=== PATIENT | female | born 1980 | race African-American/Black ===

== ENCOUNTER 2016-10-03 09:27 | Emergency (ER) | payer OTHER ==
[~2016-10-03] VITALS: Ht 160 cm; Wt 61.0 kg
[~2016-10-03 09:27] MED LIST: PREN-142 PO
[2016-10-03 09:57] VITALS: BP 126/82
[2016-10-03] MEDS ORDERED: SODIUM CHLORIDE 0.9% IR ONE (10:15)
== END 2016-10-03 10:48 | disposition home or self-care (01) ==
LOC: ER 10:25
DX: H61.22 Impacted cerumen, left ear (principal); F17.200 Nicotine dependence, unspecified, uncomplicated
CPT/HCPCS: 69209; 99283

== ENCOUNTER 2018-02-27 13:00 | Emergency (ER) | payer OTHER ==
[~2018-02-27] VITALS: Ht 152.4 cm; Wt 60.0 kg
[2018-02-27 15:11] VITALS: BP 131/90
== END 2018-02-27 16:04 | disposition left against medical advice (07) ==
LOC: ER 16:03
DX: Z53.21 Procedure and treatment not carried out due to patient leaving prior to being seen by health care provider (principal)

== ENCOUNTER 2018-09-22 09:15 | Emergency (ER) | payer OTHER ==
[~2018-09-22] VITALS: Ht 167.6 cm; Wt 73.0 kg
[2018-09-22] MEDS ORDERED: HYDROCODONE/ACETAMINOPHEN 5/325MG TABLET PO ONE (11:00)
[2018-09-22 12:49] VITALS: BP 120/72
== END 2018-09-22 12:51 | disposition home or self-care (01) ==
LOC: ER 09:15
DX: M25.561 Pain in right knee (principal); W01.0XXA Fall on same level from slipping, tripping and stumbling without subsequent striking against object, initial encounter; Y93.89 Activity, other specified; Y92.014 Private driveway to single-family (private) house as the place of occurrence of the external cause
CPT/HCPCS: 73562; 99283

== ENCOUNTER 2019-08-07 10:23 | Emergency (ER) | payer OTHER ==
[~2019-08-07] VITALS: Ht 152.4 cm; Wt 64.0 kg
[~2019-08-07 10:23] MED LIST changes: -PREN-142 PO; +PRENATAL ONE T1 EACH PO
[2019-08-07] MEDS ORDERED: SODIUM CHLORIDE 0.9% 500 ML IV ONE (11:55)
[2019-08-07] MEDS ORDERED: KETOROLAC 30MG/ML VIAL IV STA (11:55)
[2019-08-07] MEDS ORDERED: CLINDAMYCIN 600 MG in DEXTROSE 5% WATER 50 ML IV ONE (12:00)
[2019-08-07] MEDS ORDERED: CLINDAMYCIN 600MG PREMIX 50 ML IV SCH (12:15)
[2019-08-07 12:34] LABS: HEMATOCRIT. 48.4 % (36.0-48.0); HEMOGLOBIN. 16.5 g/dL (12.0-16.0); MEAN CORPUSCULAR HEMOGLOBIN 30.2 pg (28.0-32.0); MEAN CORPUSCULAR VOLUME 88.5 fL (81.0-99.0); MEAN PLATELET VOLUME 7.3 fl (7.4-10.4); PLATELET 245 x1000/uL (130-400); RED BLOOD CELL COUNT 5.46 mill/uL (4.2-5.4); RED CELL DISTRIBUTION WIDTH 15.6 % (11.6-14.6)
[2019-08-07 13:31] LABS: CHLORIDE 107 mEq/L (98-107)
[2019-08-07 13:51] LABS: PLATELET ESTIMATE NORMAL
[2019-08-07 14:01] VITALS: BP 124/76
== END 2019-08-07 14:06 | disposition home or self-care (01) ==
LOC: ER 11:50
DX: K04.7 Periapical abscess without sinus (principal); K12.2 Cellulitis and abscess of mouth
CPT/HCPCS: 36415; 80053; 81025; 85025; 96365; 96375; 99284; J1885; J3490; J7030; J7060

== ENCOUNTER 2019-09-09 18:23 | Emergency (ER) | payer OTHER ==
[~2019-09-09] VITALS: Ht 152.4 cm; Wt 64.0 kg
[2019-09-09] MEDS ORDERED: CLIN300C11 PO (18:57)
[2019-09-09] MEDS ORDERED: IBUPROFEN (18:57)
[2019-09-09] MEDS ORDERED: KETOROLAC 30MG/ML VIAL IV STA (19:26)
[2019-09-09] MEDS ORDERED: CLINDAMYCIN 600 MG in DEXTROSE 5% WATER 50 ML IV ONE (19:30)
[2019-09-09] MEDS ORDERED: CLINDAMYCIN 300 MG in DEXTROSE 5% WATER 50 ML IV ONE (20:00)
[2019-09-09 20:57] LABS: HEMATOCRIT. 45.6 % (36.0-48.0); HEMOGLOBIN. 15.4 g/dL (12.0-16.0); MEAN CORPUSCULAR HEMOGLOBIN 29.8 pg (28.0-32.0); MEAN CORPUSCULAR VOLUME 88.1 fL (81.0-99.0); MEAN PLATELET VOLUME 7.2 fl (7.4-10.4); PLATELET 213 x1000/uL (130-400); RED BLOOD CELL COUNT 5.17 mill/uL (4.2-5.4); RED CELL DISTRIBUTION WIDTH 15.9 % (11.6-14.6)
[2019-09-09 21:08] LABS: CHLORIDE 103 mEq/L (98-107)
[2019-09-09 21:09] LABS: CLARITY URINE CLEAR (CLEAR); COLOR URINE YELLOW (YELLOW); KETONES URINE TRACE (NEGATIVE); LEUKOCYTE ESTERASE URINE 2+ (NEGATIVE); NITRITE URINE NEGATIVE (NEGATIVE); OCCULT BLOOD URINE 2+ (NEGATIVE); PH URINE 5.5 (4.5-8.0); PROTEIN URINE NEGATIVE (NEGATIVE); SPECIFIC GRAVITY URINE 1.017 (1.005-1.030)
[2019-09-09 21:37] LABS: PLATELET ESTIMATE NORMAL
[2019-09-09 22:50] VITALS: BP 152/98
[2019-09-09] MEDS ORDERED: IOHEXOL-300 100 ML BOTTLE ONE (23:57)
== END 2019-09-09 23:03 | disposition home or self-care (01) ==
LOC: ER 18:23
DX: K04.7 Periapical abscess without sinus (principal); M79.89 Other specified soft tissue disorders; Z79.899 Other long term (current) drug therapy
CPT/HCPCS: 36415; 70487; 80053; 81003; 81025; 85025; 96365; 96375; 99284; J1885; J3490; J7060; Q9967

== ENCOUNTER 2020-03-23 09:14 | Emergency (ER) | payer OTHER ==
[~2020-03-23] VITALS: Ht 152.4 cm; Wt 59.0 kg
[~2020-03-23 09:14] MED LIST changes: +CLIN300C11 PO; +IBUPROFEN; -PRENATAL ONE T1 EACH PO
[2020-03-23] MEDS ORDERED: IBUPROFEN 600MG TABLET PO ONE (10:00)
[2020-03-23 10:02] VITALS: BP 152/96
== END 2020-03-23 11:04 | disposition home or self-care (01) ==
LOC: ER 09:14
DX: N64.4 Mastodynia (principal); Z80.3 Family history of malignant neoplasm of breast; Z80.9 Family history of malignant neoplasm, unspecified
CPT/HCPCS: 71045; 81025; 99283

== ENCOUNTER 2021-05-09 08:47 | Emergency (ER) | payer OTHER ==
[~2021-05-09] VITALS: Ht 152.4 cm; Wt 51.0 kg
[~2021-05-09 08:47] MED LIST changes: -CLIN300C11 PO; +CLIN300C12 PO
[2021-05-09] MEDS ORDERED: METOCLOPRAMIDE HCL 10MG/2ML VIAL IV STA (09:42)
[2021-05-09] MEDS ORDERED: SODIUM CHLORIDE 0.9% 1,000 ML IV ONE (09:45)
[2021-05-09] MEDS ORDERED: DIPHENHYDRAMINE 50MG/ML VIAL IV ONE (09:45)
[2021-05-09 10:24] LABS: BASOPHILS % 0.3 % (0.0-2.0); EOSINOPHILS % 0.1 % (0.0-5.0); HEMATOCRIT. 33.7 % (36.0-48.0); HEMOGLOBIN. 11.4 g/dL (12.0-16.0); LYMPHOCYTES % 11.5 % (20.0-50.0); MEAN CORPUSCULAR HEMOGLOBIN 30.9 pg (28.0-32.0); MEAN CORPUSCULAR VOLUME 91.4 fL (81.0-99.0); MEAN PLATELET VOLUME 6.5 fl (7.4-10.4); NEUTROPHILS % 83.1 % (40.0-76.0); PLATELET 312 x1000/uL (130-400); RED BLOOD CELL COUNT 3.68 mill/uL (4.2-5.4); RED CELL DISTRIBUTION WIDTH 14.1 % (11.6-14.6)
[2021-05-09 10:32] LABS: CHLORIDE 104 mEq/L (98-107)
[2021-05-09 14:25] LABS: CLARITY URINE CLOUDY (CLEAR); COLOR URINE YELLOW (YELLOW); KETONES URINE 4+ (NEGATIVE); LEUKOCYTE ESTERASE URINE 1+ (NEGATIVE); NITRITE URINE NEGATIVE (NEGATIVE); OCCULT BLOOD URINE NEGATIVE (NEGATIVE); PH URINE 6.5 (4.5-8.0); PROTEIN URINE 1+ (NEGATIVE); SPECIFIC GRAVITY URINE 1.025 (1.005-1.030)
[2021-05-09] MEDS ORDERED: PROM25SU57 RC (15:36)
[2021-05-09 15:45] VITALS: BP 100/75
[2021-05-09] MEDS ORDERED: METO5TAB86 MT (16:17)
[2021-05-12] MEDS ORDERED: CEPH500C2 MT (09:19)
== END 2021-05-09 16:46 | disposition home or self-care (01) ==
LOC: ER 08:47
DX: R10.30 Lower abdominal pain, unspecified (principal); O23.43 Unspecified infection of urinary tract in pregnancy, third trimester; N39.0 Urinary tract infection, site not specified; O26.893 Other specified pregnancy related conditions, third trimester; E86.0 Dehydration; O21.9 Vomiting of pregnancy, unspecified; E88.89 Other specified metabolic disorders; Z3A.28 28 weeks gestation of pregnancy
CPT/HCPCS: 36415; 80053; 81003; 83690; 85025; 96361; 96374; 96375; 99285; J1200; J2765; J7030

== ENCOUNTER 2022-12-01 21:53 | Emergency (ER) | payer MEDICAID, OTHER ==
[~2022-12-01] VITALS: Ht 152.4 cm; Wt 58.4 kg
[~2022-12-01 21:53] MED LIST changes: +CEPH500C2 MT; +CLIN-194 PO; -CLIN300C12 PO; +METO5TAB86 MT; +PROM25SU57 RC
[2022-12-01 22:03] VITALS: BP 135/88; RESP 16; TEMP 98.4; O2SAT 99
[2022-12-01 22:05] VITALS: PULSE 94
[2022-12-01 22:27] LABS: BASOPHILS % 0.4 % (0.0-2.0); EOSINOPHILS % 0.3 % (0.0-5.0); HEMATOCRIT. 38.8 % (36.0-48.0); HEMOGLOBIN. 12.9 g/dL (12.0-16.0); LYMPHOCYTES % 22.8 % (20.0-50.0); MEAN CORPUSCULAR HEMOGLOBIN 30.9 pg (28.0-32.0); MEAN CORPUSCULAR VOLUME 92.9 fL (81.0-99.0); MEAN PLATELET VOLUME 6.4 fl (7.4-10.4); MONOCYTES % 8.3 % (2.0-8.0); NEUTROPHILS % 68.2 % (40.0-76.0); PLATELET 332 x1000/uL (130-400); RED BLOOD CELL COUNT 4.18 mill/uL (4.2-5.4); RED CELL DISTRIBUTION WIDTH 14.1 % (11.6-14.6)
[2022-12-01 22:42] LABS: CHLORIDE 107 mEq/L (98-107)
== END 2022-12-02 01:00 | disposition home or self-care (01) ==
LOC: ER 21:53
DX: M62.838 Other muscle spasm (principal); R53.1 Weakness
CPT/HCPCS: 36415; 71045; 80053; 84484; 85025; 93005; 99285

== ENCOUNTER 2023-05-05 18:44 | Emergency (ER) | payer MEDICAID ==
[~2023-05-05] VITALS: Ht 154.9 cm; Wt 60.0 kg
[2023-05-05 18:59] VITALS: BP 137/92; PULSE 86; RESP 16; TEMP 97.9; O2SAT 100
[2023-05-05 19:42] LABS: BASOPHILS % 0.4 % (0.0-2.0); EOSINOPHILS % 0.1 % (0.0-5.0); HEMATOCRIT. 40.4 % (36.0-48.0); HEMOGLOBIN. 13.2 g/dL (12.0-16.0); LYMPHOCYTES % 20.8 % (20.0-50.0); MEAN CORPUSCULAR HEMOGLOBIN 30.5 pg (28.0-32.0); MEAN CORPUSCULAR HGB CONC 32.6 g/dL (31.0-37.0); MEAN CORPUSCULAR VOLUME 93.7 fL (81.0-99.0); MEAN PLATELET VOLUME 6.9 fl (7.4-10.4); MONOCYTES % 7.4 % (2.0-8.0); NEUTROPHILS % 71.3 % (40.0-76.0); PLATELET 309 x1000/uL (130-400); RED BLOOD CELL COUNT 4.31 mill/uL (4.2-5.4); RED CELL DISTRIBUTION WIDTH 13.2 % (11.6-14.6); WHITE BLOOD COUNT 8.5 x1000/uL (4.5-11.0)
[2023-05-05 19:48] LABS: PROTHROMBIN TIME 10.9 sec (9.6-11.0)
[2023-05-05 19:54] LABS: ALANINE AMINOTRANSFERASE < 7 IU/L (10-49); ASPARTATE AMINOTRANSFERASE 17 IU/L (<34); BILIRUBIN TOTAL 0.9 mg/dL (0.1-1.0); CARBON DIOXIDE 24 mEq/L (21-32); CHLORIDE 104 mEq/L (98-107); CREATININE 0.7 mg/dL (0.6-1.0); GLUCOSE 107 mg/dL (70-105); POTASSIUM 3.6 mEq/L (3.5-5.1); SODIUM 137 mEq/L (136-145); TROPONIN I HIGH SENSITIVITY 4 ng/L (3.0-34); UREA NITROGEN BLOOD 7 mg/dL (9-23)
== END 2023-05-06 02:39 | disposition left against medical advice (07) ==
LOC: ER 18:44
DX: Z53.21 Procedure and treatment not carried out due to patient leaving prior to being seen by health care provider (principal)
CPT/HCPCS: 36415; 71045; 80053; 84484; 85025; 93005; 99281

== ENCOUNTER 2024-04-12 13:16 | Emergency (ER) | payer MEDICAID ==
[~2024-04-12] VITALS: Ht 152.4 cm; Wt 59.0 kg
[2024-04-12 13:21] VITALS: TEMP 98.3; O2SAT 99
[2024-04-12 16:13] LABS: BASOPHILS % 0.1 % (0.0-2.0); EOSINOPHILS % 0.4 % (0.0-5.0); HEMATOCRIT. 39.5 % (36.0-48.0); HEMOGLOBIN. 12.7 g/dL (12.0-16.0); LYMPHOCYTES % 8.5 % (20.0-50.0); MEAN CORPUSCULAR HEMOGLOBIN 29.4 pg (28.0-32.0); MEAN CORPUSCULAR VOLUME 91.9 fL (81.0-99.0); MEAN PLATELET VOLUME 6.6 fl (7.4-10.4); PLATELET 372 x1000/uL (130-400); RED CELL DISTRIBUTION WIDTH 14.1 % (11.6-14.6); WHITE BLOOD COUNT 11.1 x1000/uL (4.5-11.0)
[2024-04-12 16:16] LABS: CHLORIDE 100 mEq/L (98-107); POTASSIUM 3.5 mEq/L (3.5-5.1); SODIUM 134 mEq/L (136-145)
[2024-04-12 16:17] LABS: CARBON DIOXIDE 27 mEq/L (21-32)
[2024-04-12 16:22] LABS: CREATININE 0.5 mg/dL (0.6-1.0); GLUCOSE 109 mg/dL (70-105); UREA NITROGEN BLOOD 7 mg/dL (9-23)
[2024-04-12 16:26] LABS: HCG SCREEN NEGATIVE
[2024-04-12] MEDS: MORPHINE SULFATE 4 MG/ML INJ (FOR IV/IM USE) IV ONE (18:31)
[2024-04-12] MEDS: FENTANYL CITRATE/PF 50MCG/ML 2ML VIAL IV ONE (21:58)
[2024-04-12] MEDS ORDERED: HYDR-4005 MT (22:29)
[2024-04-12] MEDS ORDERED: CLIN-194 MT (22:29)
[2024-04-12] MEDS ORDERED: DEX6 MT (22:29)
[2024-04-12 23:00] VITALS: BP 138/90; PULSE 85; RESP 18; O2SAT 100
[2024-04-12] MEDS: IOHEXOL-300 100 ML BOTTLE ONE (23:01)
[2024-04-12] MEDS: DEXAMETHASONE 4MG TABLET PO ONE (23:01)
[2024-04-12] MEDS: PENICILLIN G BENZATHINE 1,200,000 UNITS/2ML SYR IM NR (23:01)
[2024-04-12] MEDS: LIDOCAINE HCL 1% 20ML VIAL INFIL NR (23:01)
== END 2024-04-12 23:08 | disposition home or self-care (01) ==
LOC: ER 13:16
DX: J02.0 Streptococcal pharyngitis (principal); Z98.890 Other specified postprocedural states
CPT/HCPCS: 80048; 84703; 87430; 85025; 36415; 70491; 42700; 96372; 96374; 96375; 99285; J3010; Q9967; J8540; J3490; J0561; J2270; Z7610 ×3; 10060